=== PATIENT | male | born 1965 | race Two or more races ===

== ENCOUNTER 2022-12-03 20:52 | Emergency (ER) | payer OTHER ==
[~2022-12-03] VITALS: Ht 165.1 cm; Wt 82.3 kg
[2022-12-03 21:00] VITALS: BP 130/84
[2022-12-03 21:21] LABS: Basophils # (auto) 0 10 ^3/uL (0-0.2); Basophils % (auto) 0.4 % (0.0-2.0); Eosinophils # (auto) 0.4 10 ^3/uL (0-0.8); Eosinophils % (auto) 4.5 % (0.0-7.0); Hematocrit 40.8 % (41.0-53.0); Hemoglobin 13.9 g/dL (13.5-17.5); Lymphocytes # (auto) 2.1 10 ^3/uL (0.4-5.4); Lymphocytes % (auto) 24.2 % (10.0-50.0); Mean Corpuscular Hemoglobin 29.3 pg (28.0-32.0); Mean Corpuscular Hgb Conc. 34.2 g/dL (32.0-36.0); Mean Corpuscular Volume 85.8 fL (80.0-100.0); Monocytes # (auto) 0.6 10 ^3/uL (0-1.3); Neutrophils # (auto) 5.5 10 ^3/uL (1.6-8.6); Neutrophils % (auto) 63.9 % (37.0-80.0); Nucleated Red Blood Cells % 0.1 %; Red Blood Cells 4.75 10^6/uL (4.5-5.90); White Blood Cell 8.5 10^3/uL (4.4-10.8)
[2022-12-03 21:37] LABS: Urine Bacteria FEW /hpf (None Seen); Urine Blood Negative /uL (Negative); Urine Mucus FEW (None Seen); Urine Specific Gravity 1.032 (1.001-1.035); Urine WBC <1 /hpf (0 - 3)
[2022-12-03 21:39] LABS: Albumin 3.2 g/dL (3.4-5.0); Calcium 8.5 mg/dL (8.5-10.1); Magnesium 2.4 mg/dL (1.6-2.6); Potassium 3.7 mmol/L (3.5-5.1)
[2022-12-03 21:40] LABS: INR 0.98 (0.9-1.15); Partial Thromboplastin Time 26.2 sec (24.6-33.4)
[2022-12-03 21:42] LABS: BUN/Creatinine Ratio 18.2 (10.0-20.0)
[2022-12-03 21:44] LABS: Bilirubin, Total 0.3 mg/dL (0.2-1.0); Total Protein 6.4 g/dL (6.4-8.2)
== END 2022-12-03 21:00 | disposition left against medical advice (07) ==
LOC: ER 20:52
DX: R07.2 Precordial pain (principal); Z53.21 Procedure and treatment not carried out due to patient leaving prior to being seen by health care provider
CPT/HCPCS: 36415; 71046; 80053; 81001; 83735; 83880; 84484; 85025; 85610; 85730; 93005

== ENCOUNTER 2023-05-12 20:47 | Inpatient (IN) | payer MEDICAID ==
[~2023-05-12] VITALS: Ht 165.1 cm; Wt 77.5 kg
[2023-05-12 22:22] LABS: Basophils # (auto) 0 10 ^3/uL (0-0.2); Basophils % (auto) 0.2 % (0.0-2.0); Eosinophils # (auto) 0.3 10 ^3/uL (0-0.8); Eosinophils % (auto) 2.4 % (0.0-7.0); Hematocrit 39.6 % (41.0-53.0); Hemoglobin 13.1 g/dL (13.5-17.5); Lymphocytes # (auto) 1.7 10 ^3/uL (0.4-5.4); Lymphocytes % (auto) 12.6 % (10.0-50.0); Mean Corpuscular Hemoglobin 28.9 pg (28.0-32.0); Mean Corpuscular Hgb Conc. 33.1 g/dL (32.0-36.0); Mean Corpuscular Volume 87.5 fL (80.0-100.0); Monocytes # (auto) 0.9 10 ^3/uL (0-1.3); Monocytes % (auto) 6.9 % (0.0-12.0); Neutrophils # (auto) 10.4 10 ^3/uL (1.6-8.6); Neutrophils % (auto) 77.9 % (37.0-80.0); Red Blood Cells 4.53 10^6/uL (4.5-5.90); Red Cell Distribution Width 13.8 % (11.8-14.3); White Blood Cell 13.4 10^3/uL (4.4-10.8)
[2023-05-12] MEDS ORDERED: KETOROLAC TROMETH 60MG/2ML VIAL IM ONE (22:30)
[2023-05-12 22:43] LABS: Alanine Aminotransferase 17 U/L (7-40); Albumin 4.4 g/dL (3.2-4.8); Alkaline Phosphatase 92 U/L (46-116); Anion Gap 7 (5-15); Aspartate Aminotransferase 16 U/L (13-40); BUN/Creatinine Ratio 18.6 (10.0-20.0); Blood Urea Nitrogen 18 mg/dL (9-23); Calcium 9.4 mg/dL (8.5-10.1); Carbon Dioxide 29 mmol/L (20-30); Chloride 99 mmol/L (98-107); Glucose 115 mg/dL (74-106); Sodium 135 mmol/L (136-145)
[2023-05-12 22:44] LABS: Bilirubin, Total 0.3 mg/dL (0.2-1.0); Total Protein 7.6 g/dL (5.7-8.2)
[2023-05-12 22:52] LABS: CRP High Sensitivity 6.03 mg/dL (<1.0)
[2023-05-12 22:57] LABS: Erythrocyte Sedimentation Rate 42 mm/hr (0-20)
[2023-05-12] MEDS ORDERED: VANCOMYCIN 1GM/250ML 250 ML IV ONE (23:45)
[2023-05-13] MEDS ORDERED: PIPERACILLIN-TAZOB 3.375GM 100 ML IV ONE
[2023-05-13] MEDS ORDERED: SODIUM CHLORIDE 0.9% 1,000 ML IV ONE
[2023-05-13 02:00] VITALS: RESP 20; O2SAT 96
[2023-05-13 05:22] LABS: Urine Bacteria NONE SEEN /hpf (None Seen); Urine Blood Negative /uL (Negative); Urine Clarity Clear (Clear); Urine Protein, UAD TRACE (Negative); Urine Specific Gravity 1.011 (1.001-1.035); Urine Urobilinogen Normal (Negative); Urine WBC 4 /hpf (0 - 3); Urine pH 5.5 (5.0-8.0)
[2023-05-13] MEDS ORDERED: VANCOMYCIN PER PHARMACY 0 MG IV SCH ×2 (05:30)
[2023-05-13] MEDS ORDERED: NITROGLYCERIN 0.4 MG SL TAB SL PRN (05:30)
[2023-05-13] MEDS ORDERED: DOCUSATE SOD 100 MG CAP PO PRN (05:30)
[2023-05-13] MEDS: SODIUM CHLORIDE 0.9% 1,000 ML IV SCH ×2 (05:30→17:39)
[2023-05-13] MEDS ORDERED: ACETAMINOPHEN 325 MG TAB PO PRN (05:30)
[2023-05-13] MEDS ORDERED: MORPHINE SULFATE INJ 2 MG/ml SYRG IV PRN ×2 (05:30)
[2023-05-13] MEDS ORDERED: ONDANSETRON HCL 4 MG/2 ML VIAL IV PRN (05:30)
[2023-05-13] MEDS ORDERED: HYDROcodone-ACET 5/325MG TAB PO PRN (05:30)
[2023-05-13 05:40] LABS: Urine Color Straw (Yellow)
[2023-05-13] MEDS ORDERED: PIPERACILLIN-TAZOB 3.375GM 100 ML IV SCH (06:00)
[2023-05-13] MEDS: PIPERACILLIN-TAZOB 3.375GM 100 ML IV SCH ×2 (07:40→19:09)
[2023-05-13 08:11] VITALS: PULSE 72; RESP 16; O2SAT 96
[2023-05-13] MEDS: ENOXAPARIN SOD 40 MG/0.4 ML SYRINGE SC SCH (09:09)
[2023-05-13] MEDS: FAMOTIDINE (10MG/ML) 2ML VL IV SCH (10:00)
[2023-05-13 14:52] VITALS: PULSE 88; RESP 88; O2SAT 96
[2023-05-13] MEDS: VANCOMYCIN 1GM/250ML 250 ML IV SCH (17:38)
[2023-05-13 20:00] VITALS: PULSE 92; PULSE 93; RESP 16; O2SAT 97
[2023-05-13 22:00] VITALS: BP 128/71; PULSE 92; RESP 16; TEMP 98.3; O2SAT 97
[2023-05-14] MEDS: VANCOMYCIN 1GM/250ML 250 ML IV SCH ×3 (00:23→21:37)
[2023-05-14] MEDS: PIPERACILLIN-TAZOB 3.375GM 100 ML IV SCH ×3 (01:49→15:44)
[2023-05-14 04:52] VITALS: BP 129/88; PULSE 85; RESP 16; TEMP 98; O2SAT 96
[2023-05-14] MEDS: SODIUM CHLORIDE 0.9% 1,000 ML IV SCH ×2 (06:15→11:30)
[2023-05-14 07:33] LABS: Basophils # (auto) 0 10 ^3/uL (0-0.2); Basophils % (auto) 0.3 % (0.0-2.0); Eosinophils # (auto) 0.5 10 ^3/uL (0-0.8); Eosinophils % (auto) 5.2 % (0.0-7.0); Hematocrit 39.7 % (41.0-53.0); Hemoglobin 13.3 g/dL (13.5-17.5); Lymphocytes # (auto) 1.6 10 ^3/uL (0.4-5.4); Lymphocytes % (auto) 15.2 % (10.0-50.0); Mean Corpuscular Hemoglobin 29.3 pg (28.0-32.0); Mean Corpuscular Hgb Conc. 33.6 g/dL (32.0-36.0); Mean Corpuscular Volume 87.2 fL (80.0-100.0); Monocytes # (auto) 0.7 10 ^3/uL (0-1.3); Monocytes % (auto) 6.8 % (0.0-12.0); Neutrophils # (auto) 7.5 10 ^3/uL (1.6-8.6); Neutrophils % (auto) 72.5 % (37.0-80.0); Red Blood Cells 4.55 10^6/uL (4.5-5.90); Red Cell Distribution Width 13.9 % (11.8-14.3); White Blood Cell 10.4 10^3/uL (4.4-10.8)
[2023-05-14 07:46] LABS: Calcium 9.1 mg/dL (8.5-10.1); Chloride 105 mmol/L (98-107); Potassium 4.6 mmol/L (3.5-5.1); Sodium 138 mmol/L (136-145)
[2023-05-14 07:47] LABS: Anion Gap 6 (5-15); Carbon Dioxide 27 mmol/L (20-30)
[2023-05-14 07:52] LABS: BUN/Creatinine Ratio 16.5 (10.0-20.0); Blood Urea Nitrogen 16 mg/dL (9-23); Glucose 100 mg/dL (74-106)
[2023-05-14 08:00] VITALS: PULSE 86; RESP 16; O2SAT 95
[2023-05-14 09:03] VITALS: BP 112/74; PULSE 74; RESP 20; TEMP 98.8; O2SAT 95
[2023-05-14] MEDS: FAMOTIDINE (10MG/ML) 2ML VL IV SCH (10:29)
[2023-05-14] MEDS: ENOXAPARIN SOD 40 MG/0.4 ML SYRINGE SC SCH (10:29)
[2023-05-14 13:03] VITALS: BP 146/79; PULSE 71; RESP 20; TEMP 98.6; O2SAT 99
[2023-05-14 17:15] VITALS: BP 114/71; PULSE 81; RESP 20; TEMP 99.2; O2SAT 95
[2023-05-14 20:20] VITALS: PULSE 114; PULSE 96; RESP 18; O2SAT 96
[2023-05-15] VITALS (7 sets, daily range): BP systolic 112–139; BP diastolic 68–84; PULSE 71–94; RESP 15–20; TEMP 97.8–99.1; O2SAT 94–98
[2023-05-15] MEDS: PIPERACILLIN-TAZOB 3.375GM 100 ML IV SCH ×3 (00:57→18:30)
[2023-05-15 04:14] LABS: Basophils # (auto) 0 10 ^3/uL (0-0.2); Basophils % (auto) 0.3 % (0.0-2.0); Eosinophils # (auto) 0.7 10 ^3/uL (0-0.8); Eosinophils % (auto) 8.2 % (0.0-7.0); Hematocrit 40.7 % (41.0-53.0); Hemoglobin 13.5 g/dL (13.5-17.5); Lymphocytes % (auto) 22.8 % (10.0-50.0); Mean Corpuscular Hemoglobin 29.1 pg (28.0-32.0); Mean Corpuscular Hgb Conc. 33.2 g/dL (32.0-36.0); Mean Corpuscular Volume 87.6 fL (80.0-100.0); Monocytes # (auto) 0.8 10 ^3/uL (0-1.3); Monocytes % (auto) 8.7 % (0.0-12.0); Neutrophils # (auto) 5.2 10 ^3/uL (1.6-8.6); Red Blood Cells 4.65 10^6/uL (4.5-5.90); Red Cell Distribution Width 13.6 % (11.8-14.3); White Blood Cell 8.7 10^3/uL (4.4-10.8)
[2023-05-15 04:18] LABS: Chloride 106 mmol/L (98-107); Potassium 4.2 mmol/L (3.5-5.1); Sodium 141 mmol/L (136-145)
[2023-05-15 04:19] LABS: Anion Gap 8 (5-15); Calcium 9.4 mg/dL (8.7-10.4); Carbon Dioxide 27 mmol/L (20-30)
[2023-05-15 04:24] LABS: BUN/Creatinine Ratio 12.9 (10.0-20.0); Blood Urea Nitrogen 15 mg/dL (9-23); Glucose 114 mg/dL (74-106)
[2023-05-15] MEDS: SODIUM CHLORIDE 0.9% 1,000 ML IV SCH ×3 (05:35→17:29)
[2023-05-15] MEDS: VANCOMYCIN 1GM/250ML 250 ML IV SCH ×2 (05:36→17:26)
[2023-05-15] MEDS: FAMOTIDINE (10MG/ML) 2ML VL IV SCH (09:06)
[2023-05-15] MEDS: ENOXAPARIN SOD 40 MG/0.4 ML SYRINGE SC SCH (09:07)
[2023-05-16] VITALS (7 sets, daily range): BP systolic 107–137; BP diastolic 69–82; PULSE 62–98; RESP 12–20; TEMP 98.1–99.2; O2SAT 94–99
[2023-05-16] MEDS: VANCOMYCIN 1GM/250ML 250 ML IV SCH ×3 (02:28→23:00)
[2023-05-16] MEDS: SODIUM CHLORIDE 0.9% 1,000 ML IV SCH ×3 (03:30→23:01)
[2023-05-16] MEDS: PIPERACILLIN-TAZOB 3.375GM 100 ML IV SCH ×3 (04:31→18:29)
[2023-05-16 06:18] LABS: Chloride 104 mmol/L (98-107); Potassium 4.1 mmol/L (3.5-5.1); Sodium 137 mmol/L (136-145)
[2023-05-16 06:19] LABS: Anion Gap 6 (5-15); Carbon Dioxide 27 mmol/L (20-30)
[2023-05-16 06:22] LABS: Basophils # (auto) 0 10 ^3/uL (0-0.2); Basophils % (auto) 0.2 % (0.0-2.0); Eosinophils # (auto) 0.8 10 ^3/uL (0-0.8); Eosinophils % (auto) 7.3 % (0.0-7.0); Hematocrit 42.4 % (41.0-53.0); Hemoglobin 13.9 g/dL (13.5-17.5); Lymphocytes # (auto) 1.9 10 ^3/uL (0.4-5.4); Lymphocytes % (auto) 16.7 % (10.0-50.0); Mean Corpuscular Hemoglobin 28.6 pg (28.0-32.0); Mean Corpuscular Hgb Conc. 32.8 g/dL (32.0-36.0); Mean Corpuscular Volume 87.3 fL (80.0-100.0); Monocytes # (auto) 0.8 10 ^3/uL (0-1.3); Monocytes % (auto) 6.8 % (0.0-12.0); Neutrophils # (auto) 7.8 10 ^3/uL (1.6-8.6); Red Blood Cells 4.85 10^6/uL (4.5-5.90); Red Cell Distribution Width 13.7 % (11.8-14.3); White Blood Cell 11.3 10^3/uL (4.4-10.8)
[2023-05-16 06:25] LABS: Blood Urea Nitrogen 14 mg/dL (9-23); Glucose 119 mg/dL (74-106)
[2023-05-16] MEDS: FAMOTIDINE (10MG/ML) 2ML VL IV SCH (08:32)
[2023-05-16] MEDS: ENOXAPARIN SOD 40 MG/0.4 ML SYRINGE SC SCH (08:33)
[2023-05-17] MEDS: PIPERACILLIN-TAZOB 3.375GM 100 ML IV SCH ×2 (02:35→10:31)
[2023-05-17 05:00] VITALS: BP 115/71; PULSE 88; RESP 19; TEMP 98.2; O2SAT 95
[2023-05-17 07:01] LABS: Basophils # (auto) 0.1 10 ^3/uL (0-0.2); Basophils % (auto) 0.5 % (0.0-2.0); Eosinophils % (auto) 8.4 % (0.0-7.0); Hematocrit 43.6 % (41.0-53.0); Hemoglobin 14.4 g/dL (13.5-17.5); Lymphocytes % (auto) 17.2 % (10.0-50.0); Mean Corpuscular Hemoglobin 28.7 pg (28.0-32.0); Mean Corpuscular Hgb Conc. 33.1 g/dL (32.0-36.0); Mean Corpuscular Volume 86.9 fL (80.0-100.0); Monocytes # (auto) 0.9 10 ^3/uL (0-1.3); Neutrophils # (auto) 7.7 10 ^3/uL (1.6-8.6); Neutrophils % (auto) 65.9 % (37.0-80.0); Nucleated Red Blood Cells % 0.1 %; Red Blood Cells 5.02 10^6/uL (4.5-5.90); Red Cell Distribution Width 13.7 % (11.8-14.3); White Blood Cell 11.8 10^3/uL (4.4-10.8)
[2023-05-17 07:02] LABS: Chloride 103 mmol/L (98-107); Potassium 4.4 mmol/L (3.5-5.1); Sodium 138 mmol/L (136-145)
[2023-05-17 07:03] LABS: Anion Gap 7 (5-15); Carbon Dioxide 28 mmol/L (20-30)
[2023-05-17 07:04] LABS: Calcium 9.4 mg/dL (8.5-10.1)
[2023-05-17 07:09] LABS: BUN/Creatinine Ratio 13.2 (10.0-20.0); Blood Urea Nitrogen 15 mg/dL (9-23); Glucose 103 mg/dL (74-106)
[2023-05-17 08:00] VITALS: BP 107/69; PULSE 64; PULSE 83; RESP 17; TEMP 98.3
[2023-05-17 08:31] VITALS: BP 120/73; PULSE 77; RESP 16; TEMP 98.3; O2SAT 98
[2023-05-17] MEDS: FAMOTIDINE (10MG/ML) 2ML VL IV SCH (09:10)
[2023-05-17] MEDS: VANCOMYCIN 1GM/250ML 250 ML IV SCH (09:10)
[2023-05-17] MEDS: ENOXAPARIN SOD 40 MG/0.4 ML SYRINGE SC SCH ×2 (09:11→10:00)
[2023-05-17 13:07] VITALS: BP 125/74; PULSE 87; RESP 16; TEMP 98.3; O2SAT 99
[2023-05-17] MEDS ORDERED: DOXY-448 PO (14:50)
[2023-05-17] MEDS ORDERED: levoFLOXacin 250 MG TAB PO SCH (15:00)
[2023-05-17] MEDS ORDERED: LEVO250T58 PO (15:01)
[2023-05-17 16:18] VITALS: BP 120/73; PULSE 78; RESP 18; TEMP 36.8; O2SAT 98
[2023-05-17 17:19] VITALS: BP 106/68; PULSE 76; RESP 16; TEMP 98.3; O2SAT 95
== END 2023-05-17 18:27 | disposition home or self-care (01) | DRG 344 ==
LOC: ER 20:47 → TELE 05-13 05:48 → EDBD 05-13 05:48 → TELE-WESTW 05-13 15:15
PROVIDERS: ADMIT Nurse Practitioner Family; ATTEND Nurse Practitioner Family
DX: M86.8X7 Other osteomyelitis, ankle and foot (principal); E87.1 Hypo-osmolality and hyponatremia; D72.829 Elevated white blood cell count, unspecified; L08.9 Local infection of the skin and subcutaneous tissue, unspecified; Z59.00 Homelessness unspecified; Z82.49 Family history of ischemic heart disease and other diseases of the circulatory system; Z80.9 Family history of malignant neoplasm, unspecified
CPT/HCPCS: 36415; 73700; 73718; 80048; 80053; 80202; 81001; 83036; 83690; 83880; 84484; 85025; 85652; 86141; 87081; 93005; G0378; J1885; J2543; J3490